=== PATIENT | female | born 1950 | race Two or more races ===

== ENCOUNTER 2019-09-22 14:38 | Emergency (ER) | payer OTHER ==
[~2019-09-22] VITALS: Ht 160 cm; Wt 68.0 kg
[2019-09-22] MEDS ORDERED: NAPROXEN500 MG PO (18:09)
== END 2019-09-22 18:28 | disposition home or self-care (01) ==
LOC: ER 14:38
DX: M25.461 Effusion, right knee (principal)

== ENCOUNTER 2020-06-02 11:18 | Emergency (ER) | payer OTHER ==
[~2020-06-02] VITALS: Ht 160 cm; Wt 70.3 kg
[~2020-06-02 11:18] MED LIST: NAPROXEN500 MG PO
[2020-06-02] MEDS ORDERED: OSTERA TABLET1 EACH (11:29)
[2020-06-02] MEDS ORDERED: OCUVITE EYE HE1 EACH (11:30)
[2020-06-02] MEDS ORDERED: CRITIC-AID CLEAR4 GM (11:30)
[2020-06-02] MEDS ORDERED: ASPIR 8181 MG (11:30)
[2020-06-02] MEDS ORDERED: NORFLEX100MG PO (12:47)
[2020-06-02] MEDS ORDERED: KETO10TA2 PO (12:47)
== END 2020-06-02 13:00 | disposition home or self-care (01) ==
LOC: ER 11:18
DX: M79.604 Pain in right leg (principal)

== ENCOUNTER 2023-02-05 22:40 | Emergency (ER) | payer OTHER ==
[~2023-02-05] VITALS: Ht 157.5 cm; Wt 68.9 kg
[~2023-02-05 22:40] MED LIST changes: +ASPIR 8181 MG; +CRITIC-AID CLEAR4 GM; +KETO10TA2 PO; +NORFLEX100MG PO; +OCUVITE EYE HE1 EACH; +OSTERA TABLET1 EACH
[2023-02-05] MEDS ORDERED: ROSUVASTATIN CA40 MG PO (22:47)
== END 2023-02-06 01:01 | disposition home or self-care (01) ==
LOC: ER 22:40
DX: M62.838 Other muscle spasm (principal)